=== PATIENT | male | born 2000 | race Native Hawaiian/Other Pacific Islander ===

== ENCOUNTER 2023-02-22 10:52 | Emergency (ER) | payer OTHER ==
[2023-02-22 11:52] LABS: HEMATOCRIT 47.8 % (38.3-50.1); HEMOGLOBIN 16.7 g/dL (12.9-17.7); MEAN CORPUSCULAR HEMOGLOBIN 29.9 pg (27.0-33.3); MEAN CORPUSCULAR HGB CONC 34.9 g/dL (28.7-35.3); MEAN CORPUSCULAR VOLUME 85.7 fL (80.8-98.7); MEAN PLATELET VOLUME 6.6 fL (6.7-11.0); PLATELET COUNT,PLT 359 x10(3)uL (117-477); RED BLOOD CELL COUNT 5.57 x10(6)uL (3.90-5.90); RED CELL DISTRIBUTION WIDTH 14.1 % (12.4-15.0); WHITE BLOOD CELL COUNT,WBC 15.1 x10-3/uL (3.2-10.1)
[2023-02-22 11:57] LABS: BLOOD UREA NITROGEN,BUN 9 mg/dL (7-18); BUN/CREATININE RATIO 6.9 (9-20); CALCIUM 9.3 mg/dL (8.6-10.2); CARBON DIOXIDE,CO2 29 mmol/L (21-32); CHLORIDE,CL 102 mmol/L (100-110); CREATININE 1.3 mg/dL (0.70-1.30); ESTIMATED GFR 80 mL/min (>60); GLUCOSE RANDOM 82 mg/dL (80-116); POTASSIUM,K 4.5 mmol/L (3.5-5.3); SODIUM,NA 139 mmol/L (135-145)
[2023-02-22 12:02] LABS: A/G RATIO 1.1; ALANINE AMINOTRANSFERASE,ALT 23 U/L (12-36); ALBUMIN 4.3 g/dL (3.5-5.2); ALKALINE PHOSPHATASE 83 IU/L (56-112); ASPARTATE AMNIOTRANSFERASE,AST 20 IU/L (5-25); BILIRUBIN TOTAL 0.7 mg/dL (0.1-1.3); PROTEIN TOTAL,TP 8.2 g/dL (6.0-8.0)
[2023-02-22 12:09] LABS: ACETAMINOPHEN < 2 ug/mL (<2); SALICYLATE < 2.8 mg/dL (<2.8)
[2023-02-22 12:16] LABS: TSH ULTRASENSITIVE 0.98 IU/mL (0.36-3.74)
[2023-02-22 12:19] LABS: ETHANOL BLOOD MEDICAL < 0.03 % (<0.03)
[2023-02-22 12:24] LABS: AMPHETAMINES SCREEN, URINE NEGATIVE (NEGATIVE); BARBITURATE SCREEN,URINE NEGATIVE (NEGATIVE); BENZODIAZEPINES SCREEN,URINE NEGATIVE (NEGATIVE); METHADONE SCREEN, URINE NEGATIVE (NEGATIVE); METHAMPHETAMINE SCREEN, URINE NEGATIVE (NEGATIVE); OXYCODONE SCREEN,URINE NEGATIVE (NEGATIVE); PROPOXYPHENE SCREEN,URINE NEGATIVE (NEGATIVE); THC SCREEN,URINE NEGATIVE (NEGATIVE)
[2023-02-22 12:25] LABS: BUPRENORPHINE SCREEN,URINE NEGATIVE (NEGATIVE)
[2023-02-22 12:36] LABS: BAND PERCENT MAN 1 % (0-6); EOSINOPHILS PERCENT MAN 4 % (0-5); LYMPHOCYTES PERCENT MAN 6 % (13-37); MONOCYTES PERCENT MAN 5 % (4-12); SEG NEUTROPHILS PERCENT MAN 84 % (46-82)
== END 2023-02-22 14:08 ==
LOC: FB.ED 10:52
DX: R45.851 Suicidal ideations (principal); F32.A Depression, unspecified; F41.1 Generalized anxiety disorder
CPT/HCPCS: 36415; 80053; 80143; 80179; 80307; 84439; 84443; 85025; 99285